=== PATIENT | female | born 1965 | race Caucasian/White ===

== ENCOUNTER → 2017-02-15 | Outpatient (CLI) | payer BC ==
--- NOTE | 2017-02-15 16:47 | REP ---
Digital diagnostic unilateral left breast mammography with CAD: History: 6-month follow-up of microcalcifications observed laterally on the CC view of the prior mammography 08/27/2016. Findings: Today's study includes routine views of the left breast are augmented by true MLO, and magnified focal spot compression CC MLO and true MLO views. Today's views confirm the presence of a grouping of fine microcalcifications laterally on the CC view in the middle third of the left breast. On today's study the magnified true MLO and the magnified MLO views demonstrate these calcifications projecting superiorly. No other significant finding. Breast parenchyma remains heterogeneously dense and somewhat nodular as before. Impression: BIRADS category 4 suspicious left breast imaging. Grouping of new microcalcifications upper outer quadrant left breast. Stereotactic needle biopsy recommended. This mammogram was interpreted with the aid of an FDA-approved computer-aided detection system. The patient states she had a clinical breast exam in August 2016. The patient letter being requested is M4 dense . Signed by Arturo Lara MD 02/15/2017 04:49 P
== END ==
LOC: M RAD 16:04
PROVIDERS: ATTEND Surgery
DX: R92.0 Mammographic microcalcification found on diagnostic imaging of breast (principal)

== ENCOUNTER → 2017-03-03 | Outpatient (CLI) | payer BC ==
[~2017-03-03] MED LIST: LIDOCAINE 1% MDV 20ML VIAL As Ordered ONE
--- NOTE | 2017-03-03 13:45 | REP ---
SPECIMEN RADIOGRAPH: Specimen radiographs are performed of 10 specimens obtained during stereotactic biopsy of left breast. Questionable tiny calcifications are seen in some of the specimens. Signed by Armani Vega MD 03/04/2017 05:09 P
--- NOTE | 2017-03-03 13:47 | REP ---
POSTPROCEDURE MAMMOGRAM LEFT BREAST: Postprocedure mammogram left breast performed in the ML and CC projections. Patient underwent stereotactic biopsy of microcalcifications in the outer left breast. There is air seen at the site of the calcifications in question and there are residual calcifications seen on the postprocedure mammogram. The metallic clip appears to be deployed about 5 cm deep to the calcifications. Signed by Armani Vega MD 03/04/2017 05:10 P
--- NOTE | 2017-03-03 16:44 | REP ---
STEREOTACTIC LEFT BREAST BIOPSY: The procedure was performed under the personal supervision of Dr. Vega. The patient has a history of a grouping of new microcalcifications in the upper outer quadrant of the left breast seen on a previous mammogram dated . The risks and benefits of the procedure were explained to the patient and informed consent was obtained. A latero-medial approach was utilized. The calcifications were localized using stereotactic mammographic guidance. The skin was prepped and draped in a sterile fashion. 1% Xylocaine was used as a local anesthetic. An 8-gauge suction assisted mammotome needle was inserted and 10 core biopsy samples were obtained. Specimen radiograph demonstrates questionable tiny calcifications seen in some of the specimens. A marker clip was placed at the biopsy site. The patient tolerated the procedure well and there were no immediate complications. After the appropriate amount of monitored convalescence the patient was discharged from the department. Reviewed by CHANG Perez 03/03/2017 04:50 PEdited and Signed by Armani Vega MD 03/04/2017 05:18 P
== END ==
LOC: M RADPRO 10:16
PROVIDERS: ATTEND Surgery
DX: D24.2 Benign neoplasm of left breast (principal); Z87.891 Personal history of nicotine dependence; Z88.8 Allergy status to other drugs, medicaments and biological substances; Z79.899 Other long term (current) drug therapy

== ENCOUNTER → 2017-10-20 | Outpatient (REF) | payer BC | LOC: M SFHCWAGY 15:32 | DX: Z12.4 Encounter for screening for malignant neoplasm of cervix (principal) | CPT/HCPCS: G0123 ==

== ENCOUNTER → 2017-10-20 | Outpatient (CLI) | payer BC | LOC: M WHC 15:11 | DX: Z12.31 Encounter for screening mammogram for malignant neoplasm of breast (principal); Z80.3 Family history of malignant neoplasm of breast | CPT/HCPCS: 77067 ==

== ENCOUNTER → 2018-10-20 | Outpatient (CLI) | payer BC ==
--- NOTE | 2018-10-20 16:53 | REPMRS ---
Patient History The patient states she had a clinical breast exam in 11/01 Family history of breast cancer at age 43 in sister. Benign radio exam breast specimen of the left breast, March 03, 2017. Benign stereotatic loc for ea lesion of the left breast, March 03, 2017. Digital Woman Screen Mammo: October 20, 2018 - Exam #: [id number] Bilateral CC and MLO view(s) were taken. Technologist: Leesa Stratton, Technologist Prior study comparison: October 20, 2017, digital woman screen mammo performed at [facility]. February 15, 2017, left breast digital mammo diagnostic unilateral, performed at [facility]. August 27, 2016, digital woman screen mammo performed at [facility]. FINDINGS: The breast tissue is heterogeneously dense. This may lower the sensitivity of mammography. There is a moderate amount of heterogeneously dense fibroglandular tissue which is fairly symmetric. There is no interval development of dominant mass, architectural distortion, or clustered microcalcification typical of malignancy. There has been no change in the appearance of the mammogram from the prior studies. 3-D tomosynthesis shows no additional findings. Assessment: BI-RADS/ACR category 1 mammogram. Negative Mammogram. Recommendation Routine screening mammogram of both breasts in 1 year (for women over age 40). This patient's Lifetime Breast Cancer RIsk is estimated at 17.7 %. This mammogram was interpreted with the aid of an FDA-approved computer-aided dectection system. Electronically Signed By: Arnold Lara MD 10/20/18 [id number]
== END ==
LOC: M WHC 14:10
PROVIDERS: ATTEND Nurse Practitioner Family
DX: Z12.31 Encounter for screening mammogram for malignant neoplasm of breast (principal); Z80.3 Family history of malignant neoplasm of breast; Z86.018 Personal history of other benign neoplasm

== ENCOUNTER → 2019-10-23 | Outpatient (CLI) | payer BC ==
--- NOTE | 2019-10-23 17:22 | REPMRS ---
Patient History The patient states she had a clinical breast exam in 2019. Family history of breast cancer at age 43 in sister. Benign radio exam breast specimen of the left breast, March 03, 2017. Benign stereotatic loc for ea lesion of the left breast, March 03, 2017. Digital Woman Screen Mammo: October 23, 2019 - Exam #: [id number] Bilateral CC and MLO view(s) were taken. Technologist: Sarah Comer, Technologist Prior study comparison: October 20, 2018, bilateral digital woman screen mammo performed at [facility]. October 20, 2017, digital woman screen mammo performed at [facility]. August 27, 2016, digital woman screen mammo performed at [facility]. FINDINGS: The breast tissue is heterogeneously dense. This may lower the sensitivity of mammography. There is a needle biopsy marker clip again noted in the left breast. There is a moderate amount of heterogeneously dense fibroglandular tissue which is fairly symmetric. There is no interval development of dominant mass, architectural distortion, or grouped microcalcification typical of malignancy. There has been no change in the appearance of the mammogram from the prior studies. 3-D tomosynthesis shows no additional findings. Assessment: BI-RADS/ACR category 2 mammogram. Benign Findings. Recommendation Routine screening mammogram of both breasts in 1 year (for women over age 40). This patient's Lifetime Breast Cancer RIsk is estimated at 17.3 %. This mammogram was interpreted with the aid of an FDA-approved computer-aided dectection system. Electronically Signed By: Arnold Lara MD 10/23/19 0614
== END ==
LOC: M WHC 15:01
PROVIDERS: ATTEND Nurse Practitioner Family
DX: Z12.31 Encounter for screening mammogram for malignant neoplasm of breast (principal)

== ENCOUNTER → 2020-10-24 | Outpatient (REF) | payer BC | LOC: M SFHCWAGY 17:01 | PROVIDERS: ATTEND Nurse Practitioner Family | DX: Z12.4 Encounter for screening for malignant neoplasm of cervix (principal) | CPT/HCPCS: 87624; G0123 ==

== ENCOUNTER → 2020-10-24 | Outpatient (CLI) | payer BC ==
--- NOTE | 2020-10-24 16:17 | REPMRS ---
Patient History The patient states she had a clinical breast exam in 10/2020 Family history of breast cancer at age 43 in sister. Benign radio exam breast specimen of the left breast, March 03, 2017. Benign stereotatic loc for ea lesion of the left breast, March 03, 2017. Digital Woman Screen Mammo: October 24, 2020 - Exam #: [id number] Bilateral CC and MLO view(s) were taken. Technologist: Leesa Stratton, Technologist Prior study comparison: October 23, 2019, bilateral digital woman screen mammo performed at [facility]. October 20, 2018, bilateral digital woman screen mammo performed at [facility]. October 20, 2017, digital woman screen mammo performed at [facility]. FINDINGS: There are scattered fibroglandular densities. The Volpara volumetric breast density category is:B. There has been no change in the appearance of the mammogram from the prior studies. There is a mild amount of scattered fibroglandular density which is fairly symmetric. There is no interval development of dominant mass, architectural distortion, or grouped microcalcification suggestive of malignancy. 3-D tomosynthesis shows no additional findings. Assessment: BI-RADS/ACR category 1 mammogram. Negative Mammogram. Recommendation Routine screening mammogram of both breasts in 1 year (for women over age 40). This patient's [facility] Lifetime Breast Cancer Risk is estimated at 17.0 %. This mammogram was interpreted with the aid of an FDA-approved computer-aided dectection system. Electronically Signed By: Arnold Lara MD 10/24/20 [id number]
== END ==
LOC: M WHC 15:03
PROVIDERS: ATTEND Nurse Practitioner Family
DX: Z12.31 Encounter for screening mammogram for malignant neoplasm of breast (principal)

== ENCOUNTER → 2023-02-18 | Outpatient (REF) | payer BC | LOC: M SFHCWAGY 13:45 | PROVIDERS: ATTEND Nurse Practitioner Family | DX: Z12.4 Encounter for screening for malignant neoplasm of cervix (principal); N95.2 Postmenopausal atrophic vaginitis | CPT/HCPCS: 87624; G0123 ==

== ENCOUNTER → 2024-02-23 | Outpatient (CLI) | payer BC | LOC: M WHC 09:29 | PROVIDERS: ATTEND Nurse Practitioner Family | DX: Z12.31 Encounter for screening mammogram for malignant neoplasm of breast (principal); R92.333 Mammographic heterogeneous density, bilateral breasts ==

== ENCOUNTER → 2024-08-02 | Outpatient (REF) | payer BC | LOC: M LAB REF 12:24 | PROVIDERS: ATTEND Student in an Organized Health Care Education/Training Program | DX: R30.0 Dysuria (principal) ==

== ENCOUNTER → 2024-10-19 | Outpatient (CLI) | payer BC | LOC: M WUC 08:30 | PROVIDERS: ATTEND Student in an Organized Health Care Education/Training Program | DX: M16.11 Unilateral primary osteoarthritis, right hip (principal) ==